=== PATIENT | male | born 1985 | race Caucasian/White ===

== ENCOUNTER 2017-05-24 22:53 | Emergency (ER) | payer MEDICAID, OTHER ==
[~2017-05-24] VITALS: Ht 190.5 cm; Wt 120.0 kg
[~2017-05-24 22:53] MED LIST: AMIT25TA9 PO; KETO10 PO; LIDO1PAD52 TOPICAL; LYRI150C PO; NEXI20CA PO; OXYC-396 PO; TRIL300T PO; XANA1TAB2 PO; [UNRECOGNIZED DRUG - SUPPLY]
[2017-05-24 23:02] VITALS: BP 137/103; PULSE 132; RESP 20; TEMP 102.3; O2SAT 100
[2017-05-24] MEDS ORDERED: SODIUM CHLOR 0.9% 1000 ML INJ 1,000 ML IV ONE (23:15)
[2017-05-24] MEDS ORDERED: SODIUM CHLORIDE 0.9% FLUSH 10 ML FLUSH IVF PRN (23:15)
[2017-05-24] MEDS ORDERED: MORPHINE SULFATE 2 MG/ML INJ IV PUSH ONE (23:15)
[2017-05-24] MEDS ORDERED: ASPIRIN 81 MG CHEW TAB PO ONE (23:15)
[2017-05-24] MEDS ORDERED: ONDANSETRON HCL 4 MG/2 ML VIAL IV PUSH ONE (23:15)
[2017-05-24] MEDS ORDERED: KETOROLAC TROMETHAMINE 30 MG/ML (IVP) VIAL IV PUSH ONE (23:15)
--- NOTE | 2017-05-24 23:27 | PD ---
HPI Chief Complaint: Chest Pain Time Seen by Provider: 23:15 Travel History International Travel<30 days: No Contact w/Intl Traveler<30days: No Traveled to known affect area: No History of Present Illness HPI 32-year-old male presents to the emergency department by private transportation for evaluation of left lower leg pain and swelling chest pain shortness of breath and lightheadedness. 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 Last procedural intervention was in 2016. Patient has been undergoing ongoing physical therapy chiropractic intervention and stretching exercises to prevent dental recurrence of symptoms. Reportedly this evening was playing some basketball and shortly thereafter started noticing pain in the left lower leg. Patient subsequently has developed chest pain. Patient reports family history of some type of clotting disorder in his grandmother but is not sure what the condition was. Patient himself denies any personal history of clotting disorder. Patient denies any recent long distance travel protracted bedrest or surgical procedure. Patient does not report any hemoptysis. Patient very concerned about his dizziness. Taken a deep breath worsens his symptoms. Patient rates pain as severe. PFSH Past Medical History Arthritis: No Autoimmune Disease: No Anxiety: Yes Depression: Yes Heart Rhythm Problems: No Cancer: No Cardiovascular Problems: No High Cholesterol: No Congestive Heart Failure: No Cerebrovascular Accident: No Diminished Hearing: No Endocrine: No Gastrointestinal Disorders: Yes GERD: Yes Genitourinary: No Hiatal Hernia: No Immune Disorder: No Musculoskeletal: Yes (COMPARTMENT SYNDROME) Neurologic: Yes Psychiatric: No Respiratory: No Migraines: No Seizures: No Ulcer: No Past Surgical History Oral Surgery: Yes (WISDOM TEETH REMOVED) Other Surgery: Yes (RIGHT AND LEFT COMPARTMENT SYNDROM RELEASE) Social History Alcohol Use: Yes (SOCIALLY ON WE) Tobacco Use: No (QUIT 2009) Substance Use: No Allergies-Medications (Allergen,Severity, Reaction): Coded Allergies: codeine (Unverified Allergy, Intermediate, Insomnia, 05/24/17) Reported Meds & Prescriptions Reported Meds & Active Scripts Active Amitriptyline (Amitriptyline HCl) 25 Mg Tab 25 Mg PO HS Trileptal (Oxcarbazepine) 300 Mg Tab 300 Mg PO BID Oxycodone (Oxycodone HCl) 20 Mg Tab 20 Mg PO Q8H PRN Lyrica (Pregabalin) 150 Mg Cap 150 Mg PO TID Lidocaine Patch 12 HR (Lidocaine) 5 % Patch 1 Patch TOPICAL DAILY PRN Remove patch after 12 hours Xanax (Alprazolam) 1 Mg Tab 1 Mg PO Q6H PRN [Handicap Placard] 1 Units .XX Duration: 6 months Dx: Chronic Compartment Syndrome (M79.A29), Peripheral Neuritis (G62.9) Ketorolac (Ketorolac Tromethamine) 10 Mg Tab 10 Mg PO Q6HR PRN Reported Nexium (Esomeprazole Magnesium) Esomeprazole Magnesium 20 mg Cap 20 Mg PO DAILY PRN Review of Systems Except as stated in HPI: all other systems reviewed are Neg General / Constitutional: Positive: Fever, Chills HENT: Positive: Congestion, Other (anterior facial pain) Cardiovascular: Positive: Chest Pain or Discomfort Respiratory: Positive: Cough Gastrointestinal: Positive: Nausea, No: Abdominal Pain Genitourinary: No: Flank Pain Musculoskeletal: Positive: Myalgias, Arthralgias, Pain (LLE pain) Skin: No Rash Neurologic: No: Weakness Psychiatric: Positive: Anxiety Hematologic/Lymphatic: No: Easy Bruising Physical Exam Narrative GENERAL: Well-developed well-nourished male in obvious discomfort and appears anxious; febrile with tachycardia SKIN: Warm and dry. HEAD: Normocephalic. EYES: No scleral icterus. No injection or drainage. ENT: Mucous membranes moist airways patent. NECK: Supple, trachea midline. No JVD or lymphadenopathy. No meningismus no nuchal rigidity CARDIOVASCULAR: Increased no wheezing regular rate and rhythm without murmurs, gallops, or rubs. RESPIRATORY: Breath sounds equal bilaterally. No accessory muscle use. No rales or rhonchi. GASTROINTESTINAL: Abdomen soft, non-tender, nondistended. MUSCULOSKELETAL: No cyanosis, or edema. Patient with bilateral lower leg medial fasciotomy scars; bilateral lower leg muscle belly soft nontender non- firm negative pain on ankle jerk negative Homans capillary refill brisk and less than 2 seconds per digit dorsalis pedis pulse 2+ to palpation no increased warmth or redness no pallor or coolness of the extremities. BACK: Nontender without obvious deformity. No CVA tenderness. Data Data Last Documented VS Vital Signs Date Time Temp Pulse Resp B/P (MAP) Pulse Ox O2 Delivery O2 Flow Rate FiO2 05/25/17 02:00 99.0 76 16 122/58 (79) 99 05/25/17 01:48 Room Air Orders Orders Electrocardiogram (05/24/17 23:15) Basic Metabolic Panel (Bmp) (05/24/17 23:15) Ckmb (Isoenzyme) Profile (05/24/17 23:15) Complete Blood Count With Diff (05/24/17 23:15) D-Dimer (05/24/17 23:15) Magnesium (Mg) (05/24/17 23:15) Prothrombin Time / Inr (Pt) (05/24/17 23:15) Act Partial Throm Time (Ptt) (05/24/17 23:15) Troponin I (05/24/17 23:15) Ecg Monitoring (05/24/17 23:15) Bilateral Bp Monitoring (05/24/17 23:15) Iv Access Insert/Monitor (05/24/17 23:15) Oximetry (05/24/17 23:15) Oxygen Administration (05/24/17 23:15) Aspirin Chew (Aspirin Chew) (05/24/17 23:15) Sodium Chloride 0.9% Flush (Ns Flush) (05/24/17 23:15) Chest, Pa & Lat (05/24/17 23:15) Ketorolac Inj (Toradol Inj) (05/24/17 23:15) Sodium Chlor 0.9% 1000 Ml Inj (Ns 1000 M (05/24/17 23:15) Morphine Inj (Morphine Inj) (05/24/17 23:15) Ondansetron Inj (Zofran Inj) (05/24/17 23:15) Us Leg Venous Doppler (05/24/17 ) Influenzae A/B Antigen (05/24/17 23:38) Acetaminophen (Tylenol) (05/24/17 23:45) CKMB (05/24/17 23:43) CKMB% (05/24/17 23:43) Sodium Chlor 0.9% 1000 Ml Inj (Ns 1000 M (05/25/17 02:00) Ed Discharge Order (05/25/17 03:10) Labs Laboratory Tests Test 05/24/17 23:43 White Blood Count 11.4 TH/MM3 Red Blood Count 4.37 MIL/MM3 Hemoglobin 13.1 GM/DL Hematocrit 36.1 % Mean Corpuscular Volume 82.6 FL Mean Corpuscular Hemoglobin 29.9 PG Mean Corpuscular Hemoglobin Concent 36.2 % Red Cell Distribution Width 13.4 % Platelet Count 132 TH/MM3 Mean Platelet Volume 8.1 FL Neutrophils (%) (Auto) 86.4 % Lymphocytes (%) (Auto) 7.3 % Monocytes (%) (Auto) 4.9 % Eosinophils (%) (Auto) 0.5 % Basophils (%) (Auto) 0.9 % Neutrophils # (Auto) 9.9 TH/MM3 Lymphocytes # (Auto) 0.8 TH/MM3 Monocytes # (Auto) 0.6 TH/MM3 Eosinophils # (Auto) 0.1 TH/MM3 Basophils # (Auto) 0.1 TH/MM3 CBC Comment AUTO DIFF Differential Comment AUTO DIFF CONFIRMED Prothrombin Time 10.7 SEC Prothromb Time International Ratio 1.1 RATIO Activated Partial Thromboplast Time 24.8 SEC D-Dimer Quantitative (PE/DVT) LESS THAN 0.19 MG/L FEU Blood Urea Nitrogen 13 MG/DL Creatinine 1.30 MG/DL Random Glucose 96 MG/DL Calcium Level 8.5 MG/DL Magnesium Level 1.7 MG/DL Sodium Level 139 MEQ/L Potassium Level 3.8 MEQ/L Chloride Level 104 MEQ/L Carbon Dioxide Level 26.8 MEQ/L Anion Gap 8 MEQ/L Estimat Glomerular Filtration Rate 64 ML/MIN Total Creatine Kinase 133 U/L Creatine Kinase MB 1.2 NG/ML Troponin I LESS THAN 0.02 NG/ML MDM Medical Decision Making Medical Screen Exam Complete: Yes Emergency Medical Condition: Yes Medical Record Reviewed: Yes Interpretation(s) EKG: Sinus tachycardia incomplete right bundle branch block rate [address]-T changes no acute ST elevation Last Impressions Chest X-Ray 05/24/17 3075 Signed Impressions: Service Date/Time: Wednesday, May 24, 2017 23:48 - CONCLUSION: No acute cardiopulmonary abnormality is identified. Dima Duran MD Lower Extremity Ultrasound 05/24/17 0000 Signed Impressions: Service Date/Time: May 00:11 - CONCLUSION: No DVT is identified within the left lower extremity. Dima Duran MD CBC & BMP Diagram 05/24/17 23:43 Calcium Level 8.5, Magnesium Level 1.7 Vital Signs Date Time Temp Pulse Resp B/P (MAP) Pulse Ox O2 Delivery O2 Flow Rate FiO2 05/25/17 01:48 99.9 87 16 122/58 (79) 98 Room Air 05/24/17 23:02 102.3 132 20 137/103 (114) 100 CK total 133, not elevated; troponin I less than 0.02, not elevated D-dimer less than 0.19, not elevated Differential Diagnosis Febrile illness, influenza, sinusitis, pneumonia, pleurisy, costochondritis, chest pain, PE, DVT, rhabdomyolysis, recurrent compartment syndrome, dehydration Narrative Course Patient placed on vehicle monitor technician IV access obtained specimens collected and sent for resulting patient administered aspirin 162 mg by mouth EKG performed shows sinus tachycardia with incomplete right bundle branch block no ST elevation; patient administered Toradol 30 mg IV along with morphine sulfate 4 mg IV Zofran 4 mg IV; patient administered 1 L bolus of normal saline. Imaging studies chest x-ray and ultrasound of the left lower extremity ordered as well as d-dimer CBC is automated differential mild leukocytosis with 89% neutrophils; chemistries grossly normal range; troponin I less than 0.02, not elevated CK 133 not elevated; d-dimer is less than 0.19 not elevated Chest x-ray no acute process no infiltrate no pneumothorax Ultrasound left lower extremity negative for DVT At 1:52 AM patient is clinically improved afebrile vital signs are otherwise in normal range patient states that this is normal for him and his skin is always extremely sensitive such that nothing can touch his leg or foot and he has to turn the fan off at home as the blowing air causes irritation but again he reports this is his normal/baseline. Muscle belly remains soft and symmetric to right and left calf area. Dorsalis pedis pulse 2+ to palpation capillary refill brisk and less than 2 seconds both extremities are pink and warm there is no increased warmth redness and no pallor or coolness of the extremities. Patient given additional 1 L bolus of normal saline At 3:15 AM patient reports that he feels well and is desirous of being discharged to home has some residual facial pressure will be given prescription for azithromycin for sinusitis. Patient is encouraged to follow-up with his primary care provider 1 day. Lower leg musculature and muscle belly remains soft and non-tender and non-tense. Patient continues to have brisk capillary refill less than 2 seconds and dorsalis pedis pulses remain 2+ bilaterally. Patient states he no longer has discomfort in his lower legs beyond his baseline chronic discomfort and denies any pleuritic chest pain at this time. Diagnosis Primary Impression: Febrile illness Additional Impressions: Chronic pain syndrome Peripheral neuritis Sinusitis Referrals: Primary Care Physician 1 day Patient Instructions: General Instructions, Narcotic given in the ED Additional Instructions: Increase fluid hydration Follow-up with your primary care provider 1 day Complete course of antibiotic as prescribed Monitor temperature every 4 hours with thermometer and take as needed acetaminophen/Tylenol every 4 hours for fever 100.4F or greater and ibuprofen 600 mg as often as every 6 hours or ibuprofen 800 mg as often as every 8 hours for fever 100.4F or greater for pain associated with inflammation Return to the emergency department for any concerns or change in condition Med/Other Pt SpecificInfo: Prescription(s) given Scripts Azithromycin (Zithromax Z-Tate) 250 Mg Dspk 250 MG PO DIRECTED for Infection, #1 DSPK 0 Refills 500 MG (2 tabs) day 1, then 1 tab days 2-5. Prov: Patricia Ovalle MD 05/25/17 Patricia Ovalle MD May 24, 2017 23:27
[2017-05-24] MEDS ORDERED: ACETAMINOPHEN 500 MG CPLT PO ONE (23:45)
[2017-05-25 00:03] LABS: AUTOMATED NEUTROPHIL # 9.9 TH/MM3 (1.8-7.7); BASOPHIL # 0.1 TH/MM3 (0-0.2); BASOPHIL % 0.9 % (0.0-2.0); EOSINOPHIL # 0.1 TH/MM3 (0-0.4); EOSINOPHIL % 0.5 % (0.0-4.0); HEMATOCRIT 36.1 % (39.0-51.0); HEMOGLOBIN 13.1 GM/DL (13.0-17.0); LYMPH % 7.3 % (9.0-44.0); LYMPHOCYTE # 0.8 TH/MM3 (1.0-4.8); MEAN CELL VOLUME 82.6 FL (80.0-100.0); MEAN CORPUSCULAR HEMOGLOBIN 29.9 PG (27.0-34.0); MEAN PLATELET VOLUME 8.1 FL (7.0-11.0); MONO % 4.9 % (0.0-8.0); MONOCYTE # 0.6 TH/MM3 (0-0.9); NEUT % 86.4 % (16.0-70.0); PLATELET COUNT 132 TH/MM3 (150-450); RED BLOOD COUNT 4.37 MIL/MM3 (4.50-5.90); RED CELL DISTRIBUTION WIDTH 13.4 % (11.6-17.2); WHITE BLOOD COUNT 11.4 TH/MM3 (4.0-11.0)
[2017-05-25 00:09] LABS: BICARBONATE 26.8 MEQ/L (21.0-32.0); BLOOD UREA NITROGEN 13 MG/DL (7-18); CALCIUM 8.5 MG/DL (8.5-10.1); CHLORIDE 104 MEQ/L (98-107); GLOMERULAR FILTRATION RATE 64 ML/MIN (>89); GLUCOSE,RANDOM 96 MG/DL (74-106); MAGNESIUM 1.7 MG/DL (1.5-2.5); SODIUM (NA) 139 MEQ/L (136-145)
[2017-05-25 00:14] LABS: TROPONIN I LESS THAN 0.02 NG/ML (0.02-0.05)
[2017-05-25 00:16] LABS: MEAN CORPUSCULAR HGB CONC 36.2 % (32.0-36.0)
[2017-05-25 00:29] LABS: INTERNATIONAL NORMALIZED RATIO 1.1 RATIO; PROTHROMBIN TIME - PATIENT 10.7 SEC (9.8-11.6)
[2017-05-25 00:32] LABS: D-DIMER LESS THAN 0.19 MG/L FEU (0.00-0.50)
--- NOTE | 2017-05-25 00:35 | RADRPT ---
EXAM DATE/TIME: 05/24/2017 23:48 [facility] COMPARISON: No previous studies available for comparison. INDICATIONS : Chest pain. MEDICAL HISTORY : None. SURGICAL HISTORY : None. ENCOUNTER: Initial ACUITY: 1 day PAIN SCORE: 4/10 LOCATION: Bilateral chest FINDINGS: AP and lateral views of the chest demonstrate a normal-sized cardiac silhouette. There is no effusion , consolidation, or pneumothorax. The bones and soft tissues demonstrate no acute abnormality. EKG li matilda overlie the patient. CONCLUSION: No acute cardiopulmonary abnormality is identified. Dima Duran MD on May 25, 2017 at 0:32 Board Certified Radiologist. This report was verified electronically.
--- NOTE | 2017-05-25 00:36 | RADRPT ---
EXAM DATE/TIME: 05/25/2017 00:11 [facility] COMPARISON: No previous studies available for comparison. INDICATIONS : Left leg pain. MEDICAL HISTORY : Gastroesophageal reflux disease. Compartment syndrome. SURGICAL HISTORY : Compartment syndrome release. ENCOUNTER: Initial ACUITY: 1 day PAIN SCORE: 5/10 LOCATION: Left leg. TECHNIQUE: Venous ultrasound of the leg was performed from the inguinal ligament to the proximal calf. Real-frederic e, color Doppler and spectral tracing, compression and augmentation techniques were used. FINDINGS: There is normal compressibility of the deep venous system from the inguinal region to the proximal ca lf. No echogenic clot is seen in the lumen of the common femoral, femoral, popliteal, and posterior tibial veins. There is a normal response of the venous system to proximal and distal augmentation an d respiration. CONCLUSION: No DVT is identified within the left lower extremity. Dima Duran MD on May 25, 2017 at 0:35 Board Certified Radiologist. This report was verified electronically.
[2017-05-25 01:48] VITALS: BP 122/58; PULSE 87; RESP 16; TEMP 99.9; O2SAT 98
[2017-05-25 02:00] VITALS: BP 122/58; PULSE 76; RESP 16; TEMP 99; O2SAT 99
[2017-05-25] MEDS ORDERED: SODIUM CHLOR 0.9% 1000 ML INJ 1,000 ML IV ONE (02:00)
[2017-05-25] MEDS ORDERED: ZITHTAB PO (03:17)
--- NOTE | 2017-05-25 21:15 | EKG ---
Date Performed: 05/24/2017 Time Performed: 23:10:54 PTAGE: 32 years EKG: Sinus rhythm NONSPECIFIC T-WAVE ABNORMALITY ABNORMAL RHYTHM ECG PREVIOUS TRACING : 07/22/2013 23.35 Compared to previous tracing, heart rate has increased, inf erior T wave inversion has resolved, diffuse nonspecific T wave abnormality is now present. DOCTOR: Israel Quintero Interpretating Date/Time 05/25/2017 21:14:33
== END 2017-05-25 03:25 | disposition home or self-care (01) ==
LOC: NEPC 22:53
DX: G89.4 Chronic pain syndrome (principal); R50.9 Fever, unspecified; G62.9 Polyneuropathy, unspecified; J01.90 Acute sinusitis, unspecified; R94.31 Abnormal electrocardiogram [ECG] [EKG]; K21.9 Gastro-esophageal reflux disease without esophagitis; F41.9 Anxiety disorder, unspecified; F32.9 Major depressive disorder, single episode, unspecified; Z87.891 Personal history of nicotine dependence; Z88.5 Allergy status to narcotic agent; Z79.899 Other long term (current) drug therapy
CPT/HCPCS: 71046; 80048; 82550; 82552; 83735; 84484; 85025; 85379; 85610; 85730; 87804; 93005; 93971; 96361; 96374; 96375; 99285; J1885; J2270; J2405; J7030